=== PATIENT | female | born 2000 | race Caucasian/White ===

== ENCOUNTER 2023-11-06 13:48 | Outpatient (CLI) | payer BC | END 2023-11-06 13:49 | disposition home or self-care (01) | LOC: BICULT 13:48 | DX: N63.15 Unspecified lump in the right breast, overlapping quadrants (principal) ==

== ENCOUNTER 2024-05-30 13:57 | Outpatient (CLI) | payer BC | END 2024-05-30 13:58 | disposition home or self-care (01) | LOC: BICULT 13:57 | DX: N63.15 Unspecified lump in the right breast, overlapping quadrants (principal) ==